=== PATIENT | male | born 1960 | race Caucasian/White ===

== ENCOUNTER 2017-02-04 12:11 | Emergency (ER) | payer OTHER ==
[~2017-02-04] VITALS: Ht 180.3 cm; Wt 90.0 kg
[2017-02-04 12:12] VITALS: BP 129/80; PULSE 109; RESP 15; TEMP 98.2; O2SAT 99
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
[2017-02-04] MEDS ORDERED: PAXI10TA2 PO (12:45)
[2017-02-04] MEDS ORDERED: LISI10TA PO (12:46)
[2017-02-04] MEDS ORDERED: IBUPROFEN 600 MG TAB PO ONE (13:30)
[2017-02-04 13:42] LABS: BLOOD, URINE NEG (NEG); COMMENT (UR) CULT NOT INDICATED; CULTURE IF INDICATED CULT NOT INDICATED; GLUCOSE,URINE NEG (NEG); KETONE, URINE NEG (NEG); NITRITE,URINE NEG (NEG); PH, URINE 6.5 (5.0-8.5); URINE COLOR YELLOW (YELLW/STRAW)
[2017-02-04 14:04] LABS: ALKALINE PHOSPHATASE 88 U/L (45-117); TOTAL BILIRUBIN ADULT 0.7 MG/DL (0.2-1.0)
[2017-02-04 14:07] LABS: ALT (GPT) 34 U/L (12-78); ANION GAP 9 MEQ/L (5-15); BICARBONATE 26.2 MEQ/L (21.0-32.0); BLOOD UREA NITROGEN 11 MG/DL (7-18); CHLORIDE 101 MEQ/L (98-107); GLOMERULAR FILTRATION RATE 69 ML/MIN (>89); SODIUM (NA) 136 MEQ/L (136-145)
[2017-02-04 14:08] LABS: AUTOMATED NEUTROPHIL # 8.8 TH/MM3 (1.8-7.7); BASOPHIL % 0.4 % (0.0-2.0); EOSINOPHIL % 0.4 % (0.0-4.0); HEMATOCRIT 38.3 % (39.0-51.0); HEMO FLAGS DIFF FINAL; LYMPHOCYTE # 1.3 TH/MM3 (1.0-4.8); MEAN CELL VOLUME 84.8 FL (80.0-100.0); MEAN CORPUSCULAR HEMOGLOBIN 29.8 PG (27.0-34.0); MEAN CORPUSCULAR HGB CONC 35.1 % (32.0-36.0); MONO % 5.1 % (0.0-8.0); NEUT % 82.1 % (16.0-70.0); PLATELET COUNT 246 TH/MM3 (150-450); RED BLOOD COUNT 4.52 MIL/MM3 (4.50-5.90); RED CELL DISTRIBUTION WIDTH 12.9 % (11.6-17.2); WHITE BLOOD COUNT 10.7 TH/MM3 (4.0-11.0)
[2017-02-04 14:09] LABS: AST (GOT) 26 U/L (15-37); POTASSIUM 3.9 MEQ/L (3.5-5.1)
[2017-02-04] MEDS ORDERED: CLIN1CAP6 PO (14:24)
--- NOTE | 2017-02-04 14:24 | PD ---
HPI Chief Complaint: Flank/Kidney Pain Time Seen by Provider: 12:58 Travel History International Travel<30 days: No Contact w/Intl Traveler<30days: No Traveled to known affect area: No History of Present Illness HPI 56-year-old male presents with left upper leg having redness and feeling like his skin graft is infected. He states he also has pain to his left side and he is concerned because he could have a urine infection. He denies any trauma, fever or other concurrent complaints. Quality is pressure. Location is left sided. Severity is moderate. He pain is worse with movement. He denies other modifying factors. PFSH Past Medical History Medical History: Denies Significant Hx ?: Not Past Surgical History Other Surgery: Yes (skin graft ) Social History Alcohol Use: Yes (occ) Tobacco Use: No Substance Use: No Allergies-Medications (Allergen,Severity, Reaction): Coded Allergies: No Known Allergies (Unverified , 02/04/17) Reported Meds & Prescriptions Reported Meds & Active Scripts Active Clindamycin (Clindamycin HCl) 300 Mg Cap 300 Mg PO TID 7 Days Reported Lisinopril-Hctz 10-12.5 Mg Tab 1 Tab PO DAILY Paxil (Paroxetine HCl) 10 Mg Tab 20 Mg PO DAILY Review of Systems Except as stated in HPI: all other systems reviewed are Neg Physical Exam Narrative GENERAL: Well-nourished, well-developed patient. Well-appearing SKIN: Skin grafts noted, small area of cellulitis without abscess noted to left mid upper thigh HEAD: Normocephalic and atraumatic. EYES: No injection or drainage. ENT: No nasal drainage noted. NECK: Supple, trachea midline. CARDIOVASCULAR: Regular rate and rhythm RESPIRATORY: Breath sounds equal bilaterally. No accessory muscle use. GASTROINTESTINAL: Abdomen soft, non-tender, nondistended. EXTREMITIES: No edema. BACK: Nontender without obvious deformity. NEUROLOGICAL: Awake and alert. Motor and sensory grossly within normal limits. Normal speech. Data Data Last Documented VS Vital Signs Date Time Temp Pulse Resp B/P Pulse Ox O2 Delivery O2 Flow Rate FiO2 02/04/17 12:42 103 18 02/04/17 12:12 98.2 129/80 99 Orders Complete Blood Count With Diff (02/04/17 12:47) Comprehensive Metabolic Panel (02/04/17 12:47) Urinalysis - C+S If Indicated (02/04/17 12:47) Iv Access Insert/Monitor (02/04/17 12:47) Oximetry (02/04/17 12:47) Ibuprofen (Motrin) (02/04/17 13:30) Chest, Pa & Lat (02/04/17 ) Labs Laboratory Tests Test 02/04/17 13:25 White Blood Count 10.7 TH/MM3 Red Blood Count 4.52 MIL/MM3 Hemoglobin 13.4 GM/DL Hematocrit 38.3 % Mean Corpuscular Volume 84.8 FL Mean Corpuscular Hemoglobin 29.8 PG Mean Corpuscular Hemoglobin 35.1 % Concent Red Cell Distribution Width 12.9 % Platelet Count 246 TH/MM3 Mean Platelet Volume 7.9 FL Neutrophils (%) (Auto) 82.1 % Lymphocytes (%) (Auto) 12.0 % Monocytes (%) (Auto) 5.1 % Eosinophils (%) (Auto) 0.4 % Basophils (%) (Auto) 0.4 % Neutrophils # (Auto) 8.8 TH/MM3 Lymphocytes # (Auto) 1.3 TH/MM3 Monocytes # (Auto) 0.5 TH/MM3 Eosinophils # (Auto) 0.0 TH/MM3 Basophils # (Auto) 0.0 TH/MM3 CBC Comment DIFF FINAL Differential Comment Urine Color YELLOW Urine Turbidity CLEAR Urine pH 6.5 Urine Specific [place] 1.011 Urine Protein TRACE mg/dL Urine Glucose (UA) NEG mg/dL Urine Ketones NEG mg/dL Urine Occult Blood NEG Urine Nitrite NEG Urine Bilirubin NEG Urine Urobilinogen LESS THAN 2.0 MG/DL Urine Leukocyte Esterase SMALL Urine RBC 1 /hpf Urine WBC 4 /hpf Microscopic Urinalysis Comment CULT NOT INDICATED Sodium Level 136 MEQ/L Potassium Level 3.9 MEQ/L Chloride Level 101 MEQ/L Carbon Dioxide Level 26.2 MEQ/L Anion Gap 9 MEQ/L Blood Urea Nitrogen 11 MG/DL Creatinine 1.10 MG/DL Estimat Glomerular Filtration 69 ML/MIN Rate Random Glucose 96 MG/DL Calcium Level 9.2 MG/DL Total Bilirubin 0.7 MG/DL Aspartate Amino Transf 26 U/L (AST/SGOT) Alanine Aminotransferase 34 U/L (ALT/SGPT) Alkaline Phosphatase 88 U/L Total Protein 7.9 GM/DL Albumin 4.0 GM/DL MDM Medical Decision Making Medical Screen Exam Complete: Yes Emergency Medical Condition: Yes Medical Record Reviewed: Yes (past history confirmed) Interpretation(s) CBC & BMP Diagram 02/04/17 13:25 Last 24 hours Impressions Chest X-Ray 02/04/17 0000 Signed Impressions: Service Date/Time: Saturday, February 04, 2017 14:58 - CONCLUSION: 1. No acute cardiopulmonary disease. Specifically, no evidence for displaced left-sided fractures. Kanu Tompkins MD Differential Diagnosis UTI, cellulitis, stone, musculoskeletal Narrative Course Will check labs, urinalysis, chest x-ray and reevaluate Given interaction with other antibiotics with home medication Will place on clindamycin, no fever or white blood cell count, no abscess. Agrees to antibiotic and warm compresses, no set reason for flank pain and without specific abdominal pain or hematuria so agrees to hold on further testing initially, Patient also denies any new complaints and states that they are feeling better. Patient happy with care, all questions answered. Patient knows that follow up is incumbent on them and to return to the emergency room immediately if new or worsening symptoms develop. Patient given strict return precautions, vitals reviewed and are normal, agrees to further workup as an outpatient. Diagnosis Primary Impression: Flank pain Additional Impression: Cellulitis Qualified Code: L03.116 - Cellulitis of left lower extremity Patient Instructions: General Instructions Additional Instructions: return as needed, tylenol as needed, follow with primary this week Med/Other Pt SpecificInfo: Prescription(s) given Scripts Clindamycin 300 Mg [id number] Mg PO TID 7 Days Prov:Priti Lawson MD 02/04/17 Disposition: 01 DISCHARGE HOME Condition: Stable Priti Lawson MD Feb 04, 2017 14:24
--- NOTE | 2017-02-04 15:06 | RADRPT ---
EXAM DATE/TIME: 02/04/2017 14:58 [facility] COMPARISON: No previous studies available for comparison. INDICATIONS : Left side lateral rib, chest pain.Pt. states he has an infection on left leg. MEDICAL HISTORY : None. SURGICAL HISTORY : None. ENCOUNTER: Initial ACUITY: 1 day PAIN SCORE: 4/10 LOCATION: Left chest ribs,kidney area. FINDINGS: PA and lateral views of the chest demonstrate the lungs to be symmetrically aerated without evidence of mass, infiltrate or effusion. The cardiomediastinal contours are unremarkable. Osseous structure s are intact. No evidence for displaced rib fractures. CONCLUSION: 1. No acute cardiopulmonary disease. Specifically, no evidence for displaced left-sided fractures. Kanu Tompkins MD on February 04, 2017 at 15:02 Board Certified Radiologist. This report was verified electronically.
== END 2017-02-04 15:29 | disposition home or self-care (01) ==
LOC: NEPC 12:11
DX: R10.9 Unspecified abdominal pain (principal); L03.116 Cellulitis of left lower limb
CPT/HCPCS: 71020; 80053; 81001; 85025; 99284

== ENCOUNTER 2017-11-09 12:18 | Emergency (ER) | payer SELFPAY ==
[~2017-11-09] VITALS: Ht 180.3 cm; Wt 92.0 kg
[~2017-11-09 12:18] MED LIST: CLIN300C5 PO; LISI10TA PO; PAXI10TA8 PO
[2017-11-09 12:29] VITALS: BP 139/76; PULSE 90; RESP 16; TEMP 97.8; O2SAT 100
[2017-11-09] MEDS ORDERED: BACT800T5 PO (15:15)
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
[2017-11-09] MEDS ORDERED: ACETAMINOPHEN/HYDROcodone 325 MG/5 MG TAB PO ONE (15:30)
[2017-11-09] MEDS ORDERED: FLUT1SPR5 EACH NARE (15:58)
[2017-11-09] MEDS ORDERED: FLUTICASONE PROPIONATE 50 MCG/ACT 16 GM NASAL SPRAY NASAL SCH (21:00)
== END 2017-11-09 16:10 | disposition home or self-care (01) ==
LOC: NEPD 12:18
DX: L02.412 Cutaneous abscess of left axilla (principal); L02.411 Cutaneous abscess of right axilla; I10 Essential (primary) hypertension; F32.9 Major depressive disorder, single episode, unspecified
CPT/HCPCS: 10061

== ENCOUNTER 2017-11-14 13:15 | Emergency (ER) | payer OTHER ==
[~2017-11-14] VITALS: Ht 180.3 cm; Wt 93.0 kg
[~2017-11-14 13:15] MED LIST changes: +BACT800T5 PO; -CLIN300C5 PO; +FLUT1SPR5 EACH NARE
[2017-11-14 13:22] VITALS: BP 145/91; PULSE 92; RESP 16; TEMP 98.1; O2SAT 98
[2017-11-14] MEDS ORDERED: KETOROLAC TROMETHAMINE 30 MG/ML (IVP) VIAL IV PUSH ONE (14:15)
[2017-11-14] MEDS ORDERED: SODIUM CHLOR 0.9% 1000 ML INJ 1,000 ML IV ONE (14:15)
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
[2017-11-14 14:59] LABS: BILIRUBIN, URINE NEG (NEG); BLOOD, URINE NEG (NEG); GLUCOSE,URINE NEG (NEG); KETONE, URINE NEG (NEG); NITRITE,URINE NEG (NEG); URINE COLOR YELLOW (YELLW/STRAW); URINE LEUKOCYTE ESTERASE NEG (NEG)
[2017-11-14 15:00] LABS: AUTOMATED NEUTROPHIL # 6.3 TH/MM3 (1.8-7.7); BASOPHIL % 0.3 % (0.0-2.0); EOSINOPHIL % 0.6 % (0.0-4.0); HEMATOCRIT 41.4 % (39.0-51.0); HEMOGLOBIN 14.4 GM/DL (13.0-17.0); LYMPHOCYTE # 1.4 TH/MM3 (1.0-4.8); MEAN CELL VOLUME 86.1 FL (80.0-100.0); MEAN CORPUSCULAR HGB CONC 34.9 % (32.0-36.0); MEAN PLATELET VOLUME 6.8 FL (7.0-11.0); MONO % 3.8 % (0.0-8.0); MONOCYTE # 0.3 TH/MM3 (0-0.9); NEUT % 77.3 % (16.0-70.0); PLATELET COUNT 398 TH/MM3 (150-450); RED BLOOD COUNT 4.81 MIL/MM3 (4.50-5.90); RED CELL DISTRIBUTION WIDTH 12.1 % (11.6-17.2)
[2017-11-14 15:06] LABS: CHLORIDE 98 MEQ/L (98-107); SODIUM (NA) 134 MEQ/L (136-145)
[2017-11-14 15:10] LABS: ALBUMIN 4.2 GM/DL (3.4-5.0); BICARBONATE 26.7 MEQ/L (21.0-32.0); BLOOD UREA NITROGEN 12 MG/DL (7-18); GLUCOSE,RANDOM 106 MG/DL (74-106)
[2017-11-14 15:13] LABS: ALT (GPT) 52 U/L (12-78); AST (GOT) 19 U/L (15-37); GLOMERULAR FILTRATION RATE 77 ML/MIN (>89)
[2017-11-14 15:14] LABS: TOTAL BILIRUBIN ADULT 0.4 MG/DL (0.2-1.0); TOTAL PROTEIN 8.6 GM/DL (6.4-8.2)
[2017-11-14 15:16] LABS: ALKALINE PHOSPHATASE 109 U/L (45-117)
[2017-11-14 15:19] LABS: RBC, URINE 0-3 /hpf (0-3); SQUAMOUS EPITHELIAL CELL URINE 0-5 /hpf (0-5)
[2017-11-14] MEDS ORDERED: CLOT1CRE6 TOPICAL (15:40)
== END 2017-11-14 16:18 | disposition home or self-care (01) ==
LOC: PHED 13:15
DX: N48.1 Balanitis (principal); R21 Rash and other nonspecific skin eruption; L02.412 Cutaneous abscess of left axilla; I10 Essential (primary) hypertension; F32.9 Major depressive disorder, single episode, unspecified; F41.9 Anxiety disorder, unspecified; E78.00 Pure hypercholesterolemia, unspecified; Z88.2 Allergy status to sulfonamides
CPT/HCPCS: 80053; 81001; 83605; 85025; 87040; 96361; 96374; 99284; J1885; J7030